=== PATIENT | male | born 1985 | race Hispanic/Latino ===

== ENCOUNTER 2018-12-14 02:11 | Emergency (ER) | payer OTHER ==
[2018-12-14] MEDS ORDERED: IBUPROFEN 600 MG TABLET ONE (03:01)
[2018-12-14] MEDS ORDERED: ACETAMINOPHEN EXTRA STRENGTH 500 MG TABLET ONE (03:01)
== END 2018-12-14 03:52 | disposition home or self-care (01) ==
LOC: EDH 02:11
DX: J10.1 Influenza due to other identified influenza virus with other respiratory manifestations (principal)
CPT/HCPCS: 87804